=== PATIENT | female | born 1940 | race Caucasian/White ===

== ENCOUNTER 2018-02-23 08:19 | Emergency (ER) | payer MEDICARE ==
[~2018-02-23] VITALS: Ht 157.5 cm; Wt 58.5 kg
[2018-02-23 08:27] VITALS: Ht 157.5 cm; Wt 58.5 kg
[2018-02-23 09:17] VITALS: BP 110/63
== END 2018-02-23 09:19 | disposition home or self-care (01) ==
LOC: ED 08:19
DX: S30.814A Abrasion of vagina and vulva, initial encounter (principal); X58.XXXA Exposure to other specified factors, initial encounter; Y93.89 Activity, other specified; Y92.89 Other specified places as the place of occurrence of the external cause; Y99.8 Other external cause status

== ENCOUNTER 2018-07-27 03:15 | Emergency (ER) | payer MEDICARE ==
[~2018-07-27] VITALS: Ht 157.5 cm; Wt 57.3 kg
[2018-07-27 03:23] VITALS: Ht 157.5 cm; Wt 57.3 kg
[2018-07-27 05:45] VITALS: BP 154/91
== END 2018-07-27 05:45 | disposition home or self-care (01) ==
LOC: ED 03:15
DX: M54.32 Sciatica, left side (principal); M54.2 Cervicalgia; E03.9 Hypothyroidism, unspecified; M06.9 Rheumatoid arthritis, unspecified
CPT/HCPCS: J1885; Q0092